=== PATIENT | male | born 1980 | race Caucasian/White ===

== ENCOUNTER 2017-02-14 16:51 | Emergency (ER) | payer OTHER ==
[2017-02-14 17:13] VITALS: BP 135/89
[2017-02-14] MEDS ORDERED: IBUPROFEN 800 MG TABLET PO STA (17:21)
[2017-02-14] MEDS ORDERED: IBUPROFEN 800 MG TABLET PO ONE (17:41)
--- NOTE | 2017-02-14 18:01 | XRAY Preliminary Report ---
Exam: XR CHEST 2 VIEW PA/LAT IMPRESSION: Right middle lobe atelectasis versus infiltrate. [facility] SITE ID: [id number]
--- NOTE | 2017-02-14 18:03 | XRAY Report ---
EXAM: CHEST RADIOGRAPHY EXAM DATE: 02/14/2017 05:48 PM. CLINICAL HISTORY: Right sided chest pain, with recent cough. COMPARISON: None. TECHNIQUE: 2 views. FINDINGS: Lungs/Pleura: Streaky atelectasis versus infiltrate in the distribution of right middle lobe. Otherwi se clear. No effusion or pneumothorax. Mediastinum: Heart and mediastinal contours are unremarkable. Upper lobe vessels not distended. Other: None. IMPRESSION: Right middle lobe atelectasis versus infiltrate. [facility] Referring Provider Line: [phone] SITE ID: [id number]
[2017-02-14] MEDS ORDERED: AZITHROMYCIN 250 MG TABLET PO STA (18:05)
[2017-02-14] MEDS ORDERED: AZITHROMYCIN 250 MG TABLET PO ONE (18:12)
--- NOTE | 2017-02-14 18:15 | ED Physician Documentation ---
PD HPI CHEST PAIN - Stated complaint Stated Complaint: UP TRUNK PAIN - Chief complaint Chief Complaint: Trauma Ch/Bk - History obtained from History obtained from: Patient - History of Present Illness Timing - onset: How many days ago (3) Timing - details: Still present Quality: Tearing ("Feels like a pulled muscle.") Location: Right chest Worsened by: Inspiration, Movement (Right arm movement) Associated symptoms: Cough. No: Shortness of air, Nausea, Vomiting Similar symptoms before: Has not had sx before - Additional information Additional information: The patient is an otherwise healthy 37-year-old male who presents with right sided chest pain that started 3 days ago and has persisted since that time. He reports having a productive cough last week, but his cough has subsided. He denies associated fever or shortness of breath. The pain is worse with coughing , with respiratory inspiration, or with elevation of his right arm. He states it "feels like a pulled muscle." He denies history of similar symptoms in the past. He does not smoke cigarettes. Review of Systems Constitutional: denies: Fever Nose: denies: Congestion Throat: denies: Sore throat Cardiac: reports: Chest pain / pressure. denies: Palpitations Respiratory: reports: Cough. denies: Dyspnea GI: reports: Abdominal Pain, Nausea, Vomiting : reports: Dysuria Skin: denies: Rash Musculoskeletal: denies: Neck pain, Back pain Neurologic: denies: Focal weakness, Numbness, Headache PD PAST MEDICAL HISTORY - Past Medical History Cardiovascular: None Respiratory: None Endocrine/Autoimmune: None - Present Medications Home Medications: Ambulatory Orders Medication Instructions Recorded Confirmed Azithromycin [Zithromax] 250 mg PO DAILY #6 tablet 02/14/17 - Allergies Allergies/Adverse Reactions: Allergies Allergy/AdvReac Type Severity Reaction Status Date / Time No Known Drug Allergies Allergy Verified 02/14/17 17:14 - Social History Does the pt smoke?: No Smoking Status: Never smoker PD ED PE NORMAL - Vitals Vital signs reviewed: Yes (Borderline hypertension initially.) - General General: Alert and oriented X 3, Well developed/nourished - HEENT HEENT: Atraumatic, EOMI, Ears normal, Pharynx benign - Neck Neck: Supple, no meningeal sign, No adenopathy, No JVD - Cardiac Cardiac: RRR, No murmur - Respiratory Respiratory: Clear bilaterally, Other (No chest wall tenderness to palpation.) - Abdomen Abdomen: Normal bowel sounds, Soft, Non tender, No organomegaly - Back Back: No CVA TTP - Derm Derm: No rash - Extremities Extremities: No edema, No calf tenderness / cord - Neuro Neuro: Alert and oriented X 3, No motor deficit, No sensory deficit, Normal speech Results - Rads (name of study) 2-view CXR Radiology: Prelim report reviewed, EMP read contemporaneously, See rad report ( Right middle lobe atelectasis versus infiltrate.) PD MEDICAL DECISION MAKING - ED course Complexity details: reviewed results, re-evaluated patient, considered differential, d/w patient ED course: The patient's presentation was clinically thought to represent intercostal musculoskeletal pain from coughing. However his chest x-ray reveals right middle lobe atelectasis versus infiltrate, so pneumonia is the working diagnosis , particularly given his productive cough. He has not had fever or dyspnea. I doubt pulmonary embolus. Treatment in the emergency department included administration of ibuprofen 800 mg orally, and Zithromax 500 mg orally. He is being discharged with prescription for Zithromax. I discussed with him the diagnosis, antibiotic treatment and outpatient follow-up, as well as potentially worrisome signs or symptoms that should prompt reevaluation in the emergency department Departure - Departure Disposition: 01 Home, Self Care Clinical Impression: RML pneumonia Qualifiers: Pneumonia type: due to unspecified organism Qualified Code(s): J18.1 - Lobar pneumonia, unspecified organism Condition: Stable Instructions: ED Pneumonia Adult Follow-Up: Doctor, Your [Other] Prescriptions: Azithromycin [Zithromax] 250 mg PO DAILY #6 tablet Comments: Take Zithromax daily as prescribed. You can use ibuprofen, up to 800 mg 3 times daily for pain or discomfort. Follow up with your primary physician within 2 weeks. Call to schedule appointment. Return to the emergency department if you develop increasing chest pain or shortness of breath, or otherwise worsening symptoms. Discharge Date/Time: 02/14/17 18:23
== END 2017-02-14 18:23 | disposition home or self-care (01) ==
LOC: ED 16:51
DX: J18.9 Pneumonia, unspecified organism (principal)
CPT/HCPCS: 71020; 99282; 99283; A9270

== ENCOUNTER 2017-09-14 09:11 | Outpatient (CLI) | payer OTHER ==
[2017-09-15 14:36] LABS: HIV AG/AB 4TH GEN NON-REACTIVE (NON-REACTIVE)
[2017-09-15 15:41] LABS: HEPATITIS C ANTIBODY NON-REACTIVE (NON-REACTIVE)
[2017-09-16 10:41] LABS: HSV 2 IGG TYPE SPECIFIC AB <0.90 index
== END 2017-09-14 09:12 | disposition home or self-care (01) ==
LOC: LAB.WCP 09:11
PROVIDERS: ATTEND Family Medicine
DX: Z11.3 Encounter for screening for infections with a predominantly sexual mode of transmission (principal)
CPT/HCPCS: 36415; 81599; 86592; 86695; 86696; 86803; 87389; 87491; 87591

== ENCOUNTER 2023-07-12 10:17 | Emergency (ER) | payer OTHER ==
--- NOTE | 2023-07-12 11:04 | ED Physician Documentation ---
PD HPI URI - Stated complaint Stated Complaint: COUGH,ABD PX - Chief complaint Chief Complaint: Resp - History obtained from History obtained from: Patient - History of Present Illness Timing - onset: How many days ago (5) Timing duration: Days (5) Timing details: Abrupt onset, Still present Associated symptoms: Fever, Chills, Dry cough, Chest pain (left lower ribs/upper abd muscular pain with coughing.), Dyspnea Contributing factors: No: Sick contact, Travel, Immunocompromised, COPD / asthma Improves by: No: Rest, Medication (OTC cough meds.) Worsened by: Activity, Breathing Similar symptoms before: Has not had sx before Review of Systems Constitutional: reports: Fever, Chills, Myalgias Nose: reports: Congestion Throat: denies: Sore throat Cardiac: reports: Chest pain / pressure. denies: Palpitations Respiratory: reports: Dyspnea, Cough, Wheezing Skin: denies: Rash Musculoskeletal: denies: Extremity pain PD PAST MEDICAL HISTORY - Past Medical History Past Medical History: No Cardiovascular: None Respiratory: None Endocrine/Autoimmune: None - Past Surgical History Past Surgical History: Yes - Present Medications Home Medications: Ambulatory Orders Medication Instructions Recorded Confirmed Albuterol Sulf [Ventolin Hfa 1 - 2 puffs INH QID PRN #1 each 07/12/23 Inhaler] Benzonatate [Tessalon] 100 mg PO TID PRN #20 cap 07/12/23 HYDROcod/ACETAM 5/325 [Chrisman 5/325] 1 ea PO Q6H PRN #12 tablet 07/12/23 dexAMETHasone [Decadron] 4 mg PO DAILY #5 tablet 07/12/23 - Allergies Allergies/Adverse Reactions: Allergies Allergy/AdvReac Type Severity Reaction Status Date / Time No Known Drug Allergies Allergy Verified 07/12/23 10:50 - Social History Does the pt smoke?: No Smoking Status: Never smoker Does the pt drink ETOH?: Yes Does the pt have substance abuse?: No PD ED PE NORMAL - Vitals Vital signs reviewed: Yes - General General: Alert and oriented X 3, No acute distress, Well developed/nourished - HEENT HEENT: Pharynx benign - Neck Neck: Supple, no meningeal sign - Cardiac Cardiac: RRR, No murmur - Respiratory Respiratory: No respiratory distress. No: Clear bilaterally (decreased breath volume as precipitates repetitive hoarse coughing. No coarse sounds per se. ) - Abdomen Abdomen: Soft, Non tender - Derm Derm: Normal color, Warm and dry - Neuro Neuro: Alert and oriented X 3, Normal speech Results - Vitals Vitals: Vital Signs - 24 hr 07/12/23 07/12/23 07/12/23 10:44 12:03 12:51 Temperature 36.8 C Heart Rate 94 94 102 H Respiratory 18 16 22 Rate Blood Pressure 126/82 H 128/87 H O2 Saturation 98 100 Oxygen O2 Source Room air - Labs Labs: Laboratory Tests 07/12/23 10:54 Nasal Adenovirus (PCR) NOT DETECTED Nasal B. parapertussis DNA (PCR) NOT DETECTED Nasal Coronavir 229E PCR NOT DETECTED Nasal Coronavir HKU1 PCR NOT DETECTED Nasal Coronavir NL63 PCR NOT DETECTED Nasal Coronavir OC43 PCR NOT DETECTED Nasal Enterovir/Rhinovir PCR NOT DETECTED Nasal Influ A H1 2009 PCR DETECTED A Nasal Influenza B PCR NOT DETECTED Nasal Parainfluen 1 PCR NOT DETECTED Nasal Parainfluen 2 PCR NOT DETECTED Nasal Parainfluen 3 PCR NOT DETECTED Nasal Parainfluen 4 PCR NOT DETECTED Nasal RSV (PCR) NOT DETECTED Nasal B.pertussis DNA PCR NOT DETECTED Nasal C.pneumoniae (PCR) NOT DETECTED Jacky Human Metapneumo PCR NOT DETECTED Nasal M.pneumoniae (PCR) NOT DETECTED Nasal SARS-CoV-2 (PCR) NOT DETECTED - Rads (name of study) chest xray Relevant Findings:: Prelim report reviewed (low lung volume), EMP independent interpretation of test (no infiltrates) PD Medical Decision Making - ED course Complexity details: reviewed results (CXR without infiltrates. Some low volume c/w pain on breathing and precipitating cough. CXR done due to local pain with cough, to ensure no PTX/effusion/infiltrate. ), re-evaluated patient (feels better breathing ability after MDI. ), considered differential (sounds viral URI type symptoms prolonged but not sounding bacterial component by history. Presume persisstent bronchial irritation. Can treat with steroids, inhaler, tessalon. Having chest muscle pain with coughing disrupting sleep. Can add short term hydrocodone for pain/cough. ), d/w patient Departure - Departure Disposition: 01 Home, Self Care Clinical Impression: Influenza A Upper respiratory infection Qualifiers: URI type: unspecified URI Qualified Code(s): J06.9 - Acute upper respiratory infection, unspecified Condition: Stable Record reviewed to determine appropriate education?: Yes Prescriptions: dexAMETHasone [Decadron] 4 mg PO DAILY #5 tablet HYDROcod/ACETAM 5/325 [Chrisman 5/325] 1 ea PO Q6H PRN #12 tablet PRN Reason: Pain Benzonatate [Tessalon] 100 mg PO TID PRN #20 cap PRN Reason: Cough Albuterol Sulf [Ventolin Hfa Inhaler] 1 - 2 puffs INH QID PRN #1 each PRN Reason: Shortness Of Air/Wheezing Comments: Your chest x-ray is clear without any signs of pneumonia. Your symptoms most likely represent a viral illness with irritation of the bronchioles and persistent cough. We can try to improve upon your coughing and symptoms with a combination of a albuterol inhaler to open the airways, Decadron steroid for bronchial inflammation and benzonatate as a cough suppressant. He can continue with cough medicines. Stay well-hydrated. Add hydrocodone/acetaminophen if needed for cough and pains, particularly at night for sleep etc. I sent your prescriptions to the [facility] pharmacy here in [place]. Forms: PCP List, Activity restrictions Discharge Date/Time: 07/12/23 12:51
--- NOTE | 2023-07-12 11:34 | XRAY Report ---
PROCEDURE: Chest 1V INDICATIONS: cough TECHNIQUE: One view of the chest was acquired. COMPARISON: Chest radiograph 02/14/2017. FINDINGS: Surgical changes and devices: None. Lungs and pleura: No pleural effusions or pneumothorax. Low lung volumes, but otherwise lungs are cl ear. Mediastinum: Mediastinal contours appear normal. Heart size is normal. Bones and chest wall: No suspicious bony lesions. Overlying soft tissues appear unremarkable. IMPRESSION: Low lung volumes, but otherwise lungs are clear. Reviewed by: Loreta Contreras MD, PhD on 07/12/2023 11:33 AM PDT Approved by: Loreta Contreras MD, PhD on 07/12/2023 11:33 AM PDT Station ID: [id number]
[2023-07-12] MEDS: CHERRY SYRUP 10 ML UDC PO ONE (12:00)
[2023-07-12] MEDS: DEXAMETHASONE 10 MG/ML VIAL PO STA (12:00)
[2023-07-12] MEDS: BENZONATATE 100 MG CAPSULE PO STA (12:00)
[2023-07-12 12:02] LABS: B. PARAPERTUSSIS- RESP PCR PAN NOT DETECTED; B. PERTUSSIS- RESP PCR PANEL NOT DETECTED; C. PNEUMONIAE- RESP PCR PANEL NOT DETECTED; CORONAVIRUS 229E-RESP PCR NOT DETECTED; CORONAVIRUS HKU1-RESP PCR NOT DETECTED; CORONAVIRUS NL63-RESP PCR NOT DETECTED; CORONAVIRUS OC43-RESP PCR NOT DETECTED; HUMAN METAPNEUMOVIRUS NOT DETECTED; INFLUENZA A H1 2009- RESP PCR DETECTED; INFLUENZA B - RESP PCR PANEL NOT DETECTED; M. PNEUMONIAE- RESP PCR PANEL NOT DETECTED; PARAINFLUENZA VIRUS 1 NOT DETECTED; PARAINFLUENZA VIRUS 2 NOT DETECTED; PARAINFLUENZA VIRUS 3 NOT DETECTED; PARAINFLUENZA VIRUS 4 NOT DETECTED; RHINOVIRUS/ENTEROVIRUS NOT DETECTED; RSV- RESP PCR PANEL NOT DETECTED; SARS-CoV-2 -RESP PCR PANEL NOT DETECTED
[2023-07-12] MEDS: ALBUTEROL 1 PUFF INH STA (12:02)
[2023-07-12 12:56] VITALS: BP 128/87; O2SAT 100
== END 2023-07-12 12:51 | disposition home or self-care (01) ==
LOC: ED 10:17
DX: J10.1 Influenza due to other identified influenza virus with other respiratory manifestations (principal); Z11.52 Encounter for screening for COVID-19
CPT/HCPCS: 71045; 87633; 94640; 99284; A9270